=== PATIENT | female | born 1980 ===

== ENCOUNTER 2022-09-06 16:50 | Emergency (ER) | payer OTHER, SELFPAY ==
--- NOTE | ~2022-09-06 | XR_ITS ---
EXAMINATION: XR chest 2V Exam Date/Time: 09/06/2022 17:41 CDT HISTORY: Midsternal cp into rt side back/neck. Hx asthma, hypotension Comparison: None available. RESULT: Lines, tubes, and devices: Bilateral breast augmentation. Lungs and pleura: Mild diffuse reticulonodular opacities and cuffing. No pneumothorax or focal conso lidation. Cardiomediastinal silhouette: Stable. Other: No acute osseous or upper abdominal finding. IMPRESSION: Pulmonary opacities may represent bronchiolitis, as can be seen with atypical infection, asthma, aspi ration, and small airways disease. Reviewed, dictated and finalized at location K. IMPRESSION: Pulmonary opacities may represent bronchiolitis, as can be seen with atypical i nfection, asthma, aspiration, and small airways disease.
--- NOTE | 2022-09-06 16:51 | ECG_ITS ---
Measurements Intervals [place] Rate: 104 P: 78 PA: 139 QRS: 75 QRSD: 83 T: 14 QT: 336 QTc: 443 Interpretive Statements SINUS TACHYCARDIA RSR' IN V1 OR V2, PROBABLY NORMAL VARIANT BORDERLINE T WAVE ABNORMALITY- ANTEROLAT/INF LEADS BORDERLINE ECG NO PREVIOUS ECG AVAILABLE FOR COMPARISON Electronically Signed On 09-07-2022 11:59:21 CDT by Dony Sanchez D.O.
[2022-09-06 17:17] LABS: Basophils Percent Auto 0.5 % (0.2-1.2); Eosinophils Absolute Auto 0.1 K/mm3 (0-0.3); Eosinophils Percent Auto 2.5 % (0-4.4); Hematocrit 42.4 % (37.0-47.0); Hemoglobin 14.4 g/dL (12.0-15.0); Immature Granulocyte Absolute 0.01 K/mm3 (0.00-0.031); Immature Granulocyte Percent A 0.2 % (0-0.5); Lymphocytes Absolute Auto 1.74 K/mm3 (0.9-3.2); Lymphocytes Percent Auto 30.9 % (18.3-44.2); Mean Corpuscular Hemoglobin 30.5 pg (26-34); Mean Corpuscular Volume 89.8 fl (80-100); Mean Platelet Volume 9.3 fl (7.4-10.4); Monocytes Absolute Auto 0.3 K/mm3 (0.1-0.6); Monocytes Percent Auto 4.6 % (2.6-8.5); Neutrophils Absolute Auto 3.5 K/mm3 (1.3-6.7); Neutrophils Percent Auto 61.3 % (45.5-73.1); Platelet Count Result 264 k/mm3 (150-375); Red Blood Count 4.72 M/mm3 (4.2-5.4); Red Cell Distribution Width 13.2 % (11.5-14.5); White Blood Count 5.6 K/mm3 (4.5-10.0)
[2022-09-06 17:22] LABS: INR 1.1; Partial Thromboplastin Time 30.7 SECONDS (22.3-36.8); Prothrombin Time 13.9 Seconds (11.1-14.7)
[2022-09-06 17:23] LABS: Alanine Aminotransferase 24 U/L (6-35); Alkaline Phosphatase 52 U/L (38-126); Anion Gap 7 mmol/L (8-16); Aspartate Amino Transferase 28 U/L (14-36); Bilirubin,Total 0.7 mg/dL (0.2-1.3); Blood Urea Nitrogen 10 mg/dL (7-17); Calcium 9.1 mg/dL (8.4-10.2); Carbon Dioxide 26 mmol/L (22-30); Chloride 107 mmol/L (98-107); Estimated Glomerular Filt Rate > 60; Glucose 96 mg/dL (65-110); Lipase 426 U/L (23-300); Potassium 4.3 mmol/L (3.4-5.0); Sodium 140 mmol/L (137-145)
[2022-09-06 17:35] LABS: Troponin I < 0.012 ng/mL (0.000-0.034)
--- NOTE | 2022-09-06 19:33 | PC.NURSE ---
patient states wait is too long and left from waiting area
== END 2022-09-06 19:33 | disposition left against medical advice (07) ==
PROVIDERS: Emergency Provider Emergency Medicine
DX: Z53.21 Procedure and treatment not carried out due to patient leaving prior to being seen by health care provider (principal)
CPT/HCPCS: 36415; 71046; 80053; 83690; 84484; 85025; 85610; 85730; 93005; 99199